=== PATIENT | female | born 1980 | race Two or more races ===

== ENCOUNTER 2018-05-19 00:28 | Emergency (ER) | payer OTHER ==
[~2018-05-19] VITALS: Ht 152.4 cm; Wt 63.5 kg
[2018-05-19] MEDS ORDERED: GLIPIZIDE ER10 MG (00:34)
[2018-05-19] MEDS ORDERED: KETO10TA2 PO (04:01)
== END 2018-05-19 04:43 | disposition home or self-care (01) ==
LOC: ER 00:28
DX: S60.012A Contusion of left thumb without damage to nail, initial encounter (principal); W23.0XXA Caught, crushed, jammed, or pinched between moving objects, initial encounter; Y93.89 Activity, other specified; Y92.89 Other specified places as the place of occurrence of the external cause; Y99.8 Other external cause status